=== PATIENT | female | born 1980 | race Caucasian/White ===

== ENCOUNTER 2020-10-28 07:54 | Outpatient (REF) | payer OTHER, SELFPAY ==
[2020-10-28 09:11] LABS: MANUAL DIFF FLAG NO
[2020-10-28 09:16] LABS: Basophils Percent Auto 0.6 % (0-2); Eosinophils Absolute Auto 0.2 X10*3/uL (0.0-0.4); Eosinophils Percent Auto 2.6 % (0-4); Hemoglobin 12.7 g/dl (12.0-16.0); Imm Gran Abs Auto 0.03 X10*3/uL (0.00-0.03); Imm Gran Pct Auto 0.5 % (0.0-0.4); Lymphocytes Absolute Auto 1.4 X10*3/uL (1.2-4.9); Lymphocytes Percent Auto 22.2 % (20-40); Mean Corpuscular HGB Conc 32.6 g/dl (31.0-35.0); Mean Corpuscular Hemoglobin 29.7 pg (27.0-33.0); Mean Corpuscular Volume 91.3 fL (80-98); Mean Platelet Volume 11.1 fL (9.4-12.3); Monocytes Absolute Auto 0.5 X10*3/uL (0.1-1.2); Monocytes Percent Auto 7.3 % (2-11); Neutrophils Absolute Auto 4.3 X10*3/uL (2.0-8.3); Neutrophils Percent Auto 66.8 % (45-73); Platelet Count 285 X10*3/uL (160-400); Red Blood Count 4.27 X10*6/uL (4.20-5.50); Red Cell Distribution Width 12.3 % (11.0-16.0); White Blood Count 6.4 X10*3/uL (4.8-10.8)
[2020-10-28 09:49] LABS: Alanine Aminotransferase 7 U/L (0-31); Albumin Level 4.3 g/dL (3.5-5.0); Alkaline Phosphatase 53 U/L (39-117); Anion Gap 12 (12-20); Aspartate Amino Transferase 14 U/L (5-31); Bilirubin Total 0.8 mg/dL (0.0-1.0); Blood Urea Nitrogen 16 mg/dL (9-16); Calcium 9.3 mg/dL (8.4-10.2); Carbon Dioxide 25 mmol/L (22-29); Chloride 107 mmol/L (96-108); Cholesterol 200 mg/dL; Estimated Glomerular Filt Rate > 60; Glucose Fasting 82 mg/dL (60-99); HDL Cholesterol 60 mg/dL; LDL Cholesterol Calculated 130 mg/dl; Sodium 140 mmol/L (135-145); Total Protein 6.8 g/dL (6.5-8.0); Triglycerides 51 mg/dL
[2020-10-28 10:01] LABS: Thyroid Stimulating Hormone 2.61 uIU/mL (0.32-4.0)
== END 2020-10-28 07:55 | disposition home or self-care (01) ==
LOC: HO.LAB 07:54
PROVIDERS: PCP Internal Medicine; Visit Provider Internal Medicine
DX: Z00.00 Encounter for general adult medical examination without abnormal findings (principal); E11.9 Type 2 diabetes mellitus without complications; E03.9 Hypothyroidism, unspecified
CPT/HCPCS: 36415; 80053; 80061; 84443; 85025

== ENCOUNTER 2022-05-17 07:53 | Outpatient (REF) | payer OTHER, SELFPAY ==
[2022-05-17 10:45] LABS: MANUAL DIFF FLAG NO
[2022-05-17 10:53] LABS: Basophils Absolute Auto 0.1 X10*3/uL (0.0-0.2); Basophils Percent Auto 1.2 % (0-2); Eosinophils Absolute Auto 0.2 X10*3/uL (0.0-0.4); Eosinophils Percent Auto 4.3 % (0-4); Hematocrit 38.9 % (37.0-47.0); Hemoglobin 12.7 g/dl (12.0-16.0); Imm Gran Abs Auto 0.02 X10*3/uL (0.00-0.03); Imm Gran Pct Auto 0.4 % (0.0-0.4); Lymphocytes Absolute Auto 1.7 X10*3/uL (1.2-4.9); Lymphocytes Percent Auto 34.1 % (20-40); Mean Corpuscular HGB Conc 32.6 g/dl (31.0-35.0); Mean Corpuscular Hemoglobin 28.7 pg (27.0-33.0); Mean Corpuscular Volume 87.8 fL (80.0-98.0); Mean Platelet Volume 11.8 fL (9.4-12.3); Monocytes Absolute Auto 0.6 X10*3/uL (0.1-1.2); Monocytes Percent Auto 11.8 % (2-11); Neutrophils Absolute Auto 2.4 x10*3/uL (2.0-8.3); Neutrophils Percent Auto 48.2 % (45-73); Platelet Count 270 X10*3/uL (160-400); Red Blood Count 4.43 X10*6/uL (4.20-5.50); Red Cell Distribution Width 11.9 % (11.0-16.0); White Blood Count 4.9 X10*3/uL (4.8-10.8)
[2022-05-17 12:01] LABS: Alanine Aminotransferase 9 U/L (0-31); Albumin Level 4.2 g/dL (3.5-5.0); Alkaline Phosphatase 59 U/L (39-117); Anion Gap 12 (12-20); Aspartate Amino Transferase 13 U/L (5-31); Bilirubin Total 0.6 mg/dL (0.0-1.0); Blood Urea Nitrogen 15 mg/dL (9-16); Calcium 8.7 mg/dL (8.4-10.2); Carbon Dioxide 24 mmol/L (22-29); Chloride 105 mmol/L (96-108); Cholesterol 198 mg/dL; Estimated Glomerular Filt Rate > 60; Glucose Fasting 79 mg/dL (60-99); HDL Cholesterol 55 mg/dL; LDL Cholesterol Calculated 129 mg/dl; Potassium 3.7 mmol/L (3.3-5.1); Sodium 137 mmol/L (135-145); Total Protein 6.8 g/dL (6.5-8.0); Triglycerides 72 mg/dL
== END 2022-05-17 07:54 | disposition home or self-care (01) ==
LOC: HO.10HDL 07:53
PROVIDERS: Visit Provider Internal Medicine
DX: Z13.0 Encounter for screening for diseases of the blood and blood-forming organs and certain disorders involving the immune mechanism (principal); I10 Essential (primary) hypertension; E03.9 Hypothyroidism, unspecified; E78.5 Hyperlipidemia, unspecified
CPT/HCPCS: 36415; 80053; 80061; 84443; 85025

== ENCOUNTER 2023-02-04 10:52 | Outpatient (AMB) | payer OTHER, SELFPAY ==
[2023-02-04 10:55] VITALS: BP 100/58; PULSE 59; O2SAT 100
--- NOTE | 2023-02-04 10:55 | A.OFFPC_ITS ---
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 per policy Accompanied by: Self / Same As Patient Allergies No Known Allergies Allergy (Verified 02/04/23 10:56) Medication List - Last Reconciled 02/04/23 by Shadi Thacker MD cetirizine (Zyrtec) 10 mg PO DAILY PRN multivitamin 1 tab PO DAILY Tobacco use date assessed: 02/02/22 Dental Screening Dental Screen Date: 02/04/23 Did you have a dental visit in the last 12 months?: Yes Did you have a dental problem in the last 6 months where you did not have access to dental care?: No Was dental information given to patient?: Patient has dentist HPI annual exam HPI Details healthy [facility] Surgical History History of section History of wisdom tooth extraction Family History Mother No problems noted. Father No problems noted. Social History Housing: House Alcohol intake: current Alcohol intake frequency: holidays/special occasions only Patient Tobacco Use Status: Never used Tobacco e-Cigarette/Vaping Use: Never Used Second Hand Smoke Exposure: No service: No Current occupational status: employed Current occupation: [employer] Cognitive needs: No Hearing needs: No Vision needs: No Questionnaire PHQ-9 Over the last 2 weeks, how often have you been bothered by any of the following problems? 1. Little interest or pleasure in doing things: not at all 2. Feeling down, depressed, or hopeless: not at all 3. Trouble falling or staying asleep, or sleeping too much: not at all 4. Feeling tired or having little energy: not at all 5. Poor appetite or overeating: not at all 6. Feeling bad about yourself - or that you are a failure or have let yourself or your family down: not at all 7. Trouble concentrating on things, such as reading the newspaper or watching television: not at all 8. Moving or speaking so slowly that other people could have noticed. Or the opposite - being so fidgety or restless that you have been moving around a lot more than usual: not at all 9. Thoughts that you would be better off or of hurting yourself in some way: not at all Total score: 0 Depression Screening Interpretation: Negative 18246 - PHQ-9 Billing: Yes Source: Developed by Drs. Sloan Lemus, Kailyn Allen, Cesar Hicks and colleagues, with an educational bebeto from [employer]. Thrive Questionnaire Date Thrive assessed: 02/04/23 I am a: Patient What is your living situation today?: I have a steady place to live Within the past 12 months, did the food you bought not last and you didn't have the money to get more?: Never true Within the past 12 months, did you worry whether your food would run out before you got money to buy more?: Never true Do you have trouble paying for medicines?: No Do you have trouble getting transportation to medical appointments?: No Do you have trouble paying your heating and electricity bill?: No Do you have trouble taking care of your child, family member or friend?: No Do you have trouble with day-to-day activities such as bathing, preparing meals, shopping, managing finances, etc.?: No Are you currently unemployed and looking for a job?: No Are you interested in more education?: No Please select the resources that you would like help with: None AUDIT C Alcohol Use Questionnaire (AUDIT-C) 1. How often do you have a drink containing alcohol?: Never Total Score: 0 Score Reviewed/Action Taken: Yes YESENIA-7 AMB Questionnaire YESENIA-7 Date YESENIA - 7 assessed: 02/04/23 Feeling nervous, anxious, or on edge: 0 = Not at all Not being able to stop or control worryin = Not at all Worrying too much about different things: 0 = Not at all Trouble relaxin = Not at all Being so restless that it is hard to sit still: 0 = Not at all Becoming easily annoyed or irritable: 0 = Not at all Feeling afraid as if something awful might happen: 0 = Not at all Total YESENAI-7 score (0-4 normal; 5-9 mild; 10-14 moderate; 15-21 severe): 0 Source: Developed by Drs. Sloan Lemus, Kailyn Allen, Cesar Hicks and colleagues, with an educational bebeto from [employer]. YESENIA-7 Assessment Billing YESENIA-7 Assessment Tool: YESENIA-7 Assessment 46355 Review of Systems Const Denies chills, Denies fatigue, Denies headache(s) and Denies weight loss Eyes Denies change in vision, Denies diplopia and Denies eye pain ENT Denies vertigo, Denies dizziness, Denies headache(s) and Denies nasal discharge Card Denies chest pain, Denies rapid heart rate and Denies dyspnea on exertion Resp Denies chest congestion, Denies cough, Denies pain with cough and Denies dyspnea on exertion GI Denies abdominal pain, Denies hematochezia and Denies change in bowel habits Musc Denies myalgias, Denies arthralgias and Denies joint swelling Skin/Breast Denies lesions and Denies unusual bruising Neuro Denies vertigo, Denies dizziness, Denies headache(s) and Denies focal weakness Endo Denies fatigue Physical exam (Primary Care) Vital Signs: Last Vital Signs Pulse 59 02/04/23 10:55 BP 100/58 L 02/04/23 10:55 Pulse Ox 100 02/04/23 10:55 Oxygen Delivery Method Room Air 02/04/23 10:55 BMI result Body Mass Index 20.0 Tobacco/Smoking Status: Tobacco use Status Tobacco use date assessed 02/02/22 02/04/23 10:57 Patient Tobacco Use Status Never used Tobacco 02/04/23 10:57 e-Cigarette/Vaping Use Never Used 02/04/23 10:57 PHQ-9: PHQ-9 Score PHQ-9: Total score 0 02/04/23 11:05 Depression Screening Interpretation: Negative Thrive Assessment: Date of Thrive Assessment Date Thrive assessed 02/04/23 02/04/23 10:57 Const General: cooperative, healthy appearing and no acute distress Orientation/consciousness: oriented to person, oriented to place and oriented to time HENMT Head: Yes normal to inspection, Yes normocephalic and Yes atraumatic Mouth: Normal oral and palatal mucosa present and tongue normal Throat: Yes posterior oropharynx normal and Yes uvula midline Eyes General: appearance normal, both eyes and all related structures Neck Neck: Yes normal visual inspection, Yes full ROM and Yes no lymphadenopathy Thyroid: Thyroid normal Carotids: normal carotid upstroke Chest Chest palpation & inspection: normal inspection of the chest Resp Effort & Inspection: normal respiratory effort and able to speak in complete sentences Auscultation: clear to auscultation bilaterally Cardio Jugular venous distension: no JVD Palpation: normal PMI Rate: regular rate Rhythm: regular rhythm Heart sounds: S1 normal heart sound present and S2 normal heart sound present GI Inspection: Yes normal to inspection Palpation (GI): Soft to palpation and No hepatosplenomegaly present Auscultation: normal bowel sounds General: Yes no CVA tenderness Back/Spine/Pelvis Back: no CVA tenderness Skin General skin exam: no rashes or lesions noted Neuro General: oriented to person, oriented to place and oriented to time Extrem General: Yes normal to inspection and Yes full ROM Assessment and Plan Assessment & Plan (1) Physical exam: Code(s): Z00.00 - Encounter for general adult medical examination without abnormal findings Plan: healthy; do labs Orders: Orders Lipid Panel Today E78.5 - Hyperlipidemia, unspecified Complete Blood Count Auto Diff Today D64.9 - Anemia, unspecified Comprehensive [place]. Panel Fast Today N28.9 - Disorder of kidney and ureter, unspecified Thyroid Stimulating Hormone Today E03.9 - Hypothyroidism, unspecified Coding Level of Care Code Est Pt Prev Care 40-64y(73996) Diagnoses Physical exam Z00.00 Additional Codes YESENIA-7 Assessment Billing - YESENIA-7 Assessment Tool: YESENIA-7 Assessment [id number] ([id number])
== END 2023-02-04 11:24 | disposition home or self-care (01) ==
PROVIDERS: PCP Internal Medicine; Visit Provider Internal Medicine
DX: Z00.00 Encounter for general adult medical examination without abnormal findings (principal)
CPT/HCPCS: 99396

== ENCOUNTER 2023-06-14 08:19 | Outpatient (REF) | payer OTHER, SELFPAY ==
[2023-06-14 11:19] LABS: MANUAL DIFF FLAG NO
[2023-06-14 12:01] LABS: Basophils Percent Auto 0.7 % (0-2); Eosinophils Absolute Auto 0.2 X10*3/uL (0.0-0.4); Eosinophils Percent Auto 2.7 % (0-4); Hematocrit 39.5 % (37.0-47.0); Hemoglobin 13.1 g/dl (12.0-16.0); Imm Gran Abs Auto 0.01 X10*3/uL (0.00-0.03); Imm Gran Pct Auto 0.2 % (0.0-0.4); Lymphocytes Absolute Auto 1.6 X10*3/uL (1.2-4.9); Mean Corpuscular HGB Conc 33.2 g/dl (31.0-35.0); Mean Corpuscular Hemoglobin 28.9 pg (27.0-33.0); Mean Corpuscular Volume 87.2 fL (80.0-98.0); Mean Platelet Volume 11.8 fL (9.4-12.3); Monocytes Absolute Auto 0.5 X10*3/uL (0.1-1.2); Monocytes Percent Auto 9.7 % (2-11); Neutrophils Absolute Auto 3.2 x10*3/uL (2.0-8.3); Neutrophils Percent Auto 57.7 % (45-73); Platelet Count 288 X10*3/uL (160-400); Red Blood Count 4.53 X10*6/uL (4.20-5.50); Red Cell Distribution Width 12.5 % (11.0-16.0); White Blood Count 5.6 X10*3/uL (4.8-10.8)
[2023-06-14 13:18] LABS: Alanine Aminotransferase 11 U/L (0-31); Albumin Level 4.3 g/dL (3.5-5.0); Alkaline Phosphatase 62 U/L (39-117); Anion Gap 12 (12-20); Aspartate Amino Transferase 14 U/L (5-31); Bilirubin Total 0.5 mg/dL (0.0-1.0); Blood Urea Nitrogen 13 mg/dL (9-16); Calcium 9.2 mg/dL (8.4-10.2); Carbon Dioxide 25 mmol/L (22-29); Chloride 106 mmol/L (96-108); Cholesterol 201 mg/dL (<200); Estimated Glomerular Filt Rate > 60; Glucose Fasting 79 mg/dL (60-99); HDL Cholesterol 61 mg/dL (>40); LDL Cholesterol Calculated 123 mg/dL (<100); Potassium 3.8 mmol/L (3.3-5.1); Sodium 139 mmol/L (135-145); Thyroid Stimulating Hormone 2.75 uIU/mL (0.32-4.0); Total Protein 7.5 g/dL (6.5-8.0); Triglycerides 87 mg/dL (<150)
== END 2023-06-14 08:20 | disposition home or self-care (01) ==
LOC: HO.WFDLDS 08:19
PROVIDERS: Visit Provider Internal Medicine
DX: E03.9 Hypothyroidism, unspecified (principal); D64.9 Anemia, unspecified; N28.9 Disorder of kidney and ureter, unspecified; E78.5 Hyperlipidemia, unspecified
CPT/HCPCS: 36415; 80053; 80061; 84443; 85025

== ENCOUNTER 2024-02-06 09:49 | Outpatient (AMB) | payer OTHER, SELFPAY ==
[2024-02-06 10:01] VITALS: BP 114/70; PULSE 66; O2SAT 98; BMI 20.4
--- NOTE | 2024-02-06 10:01 | MHC.PC.OV ---
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 Accompanied by: Self / Same As Patient Allergies No Known Allergies Allergy (Verified 02/06/24 10:07) Medication List - Last Reconciled 02/06/24 by Shadi Thacker MD cetirizine (Zyrtec) 10 mg PO DAILY PRN multivitamin 1 tab PO DAILY Tobacco use date assessed: 02/06/24 Dental Screening Dental Screen Date: 02/06/24 Did you have a dental visit in the last 12 months?: Yes Did you have a dental problem in the last 6 months where you did not have access to dental care?: No Was dental information given to patient?: Patient has dentist HPI pe HPI Details healthy [facility] Surgical History History of section History of wisdom tooth extraction Family History Mother No problems noted. Father No problems noted. Social History Housing: House Alcohol intake: current Alcohol intake frequency: holidays/special occasions only Patient Tobacco Use Status: Never used Tobacco Tobacco use type: Cigarette e-Cigarette/Vaping Use: Never Used Second Hand Smoke Exposure: No service: No Current occupational status: employed Current occupation: [employer] Cognitive needs: No Hearing needs: No Vision needs: No Questionnaire PHQ-9 Over the last 2 weeks, how often have you been bothered by any of the following problems? 1. Little interest or pleasure in doing things: not at all 2. Feeling down, depressed, or hopeless: not at all 3. Trouble falling or staying asleep, or sleeping too much: not at all 4. Feeling tired or having little energy: not at all 5. Poor appetite or overeating: not at all 6. Feeling bad about yourself - or that you are a failure or have let yourself or your family down: not at all 7. Trouble concentrating on things, such as reading the newspaper or watching television: not at all 8. Moving or speaking so slowly that other people could have noticed. Or the opposite - being so fidgety or restless that you have been moving around a lot more than usual: not at all 9. Thoughts that you would be better off or of hurting yourself in some way: not at all Total score: 0 Depression Screening Interpretation: Negative Depression Screening Done: Yes 75026 - PHQ-9 Billing: Yes Source: Developed by Drs. Sloan Lemus, Kailyn Allen, Cesar Hicks and colleagues, with an educational bebeto from [employer]. Thrive Questionnaire Date Thrive assessed: 01/31/24 I am a: Patient What is your living situation today?: I have a steady place to live Within the past 12 months, did the food you bought not last and you didn't have the money to get more?: Never true Within the past 12 months, did you worry whether your food would run out before you got money to buy more?: Never true Do you have trouble paying for medicines?: No Do you have trouble getting transportation to medical appointments?: No Do you have trouble paying your heating and electricity bill?: No Do you have trouble taking care of your child, family member or friend?: No Do you have trouble with day-to-day activities such as bathing, preparing meals, shopping, managing finances, etc.?: No Are you currently unemployed and looking for a job?: No Are you interested in more education?: No Please select the resources that you would like help with: None Currently or been in a relationship where the following occur: No concerns reported THRIVE Score: 0 AUDIT C Alcohol Use Questionnaire (AUDIT-C) 2. How many drinks containing alcohol do you have on a typical day when you are drinking?: 1 or 2 3. How often do you have six or more drinks on one occasion?: Never Total Score: 0 YESENIA-7 AMB Questionnaire YESENIA-7 Date YESENIA - 7 assessed: 02/06/24 Feeling nervous, anxious, or on edge: 0 = Not at all Not being able to stop or control worryin = Not at all Worrying too much about different things: 0 = Not at all Trouble relaxin = Not at all Being so restless that it is hard to sit still: 0 = Not at all Becoming easily annoyed or irritable: 0 = Not at all Feeling afraid as if something awful might happen: 0 = Not at all Total YESENIA-7 score (0-4 normal; 5-9 mild; 10-14 moderate; 15-21 severe): 0 Source: Developed by Drs. Sloan Lemus, Kailyn Allen, Cesar Hicks and colleagues, with an educational bebeto from [employer]. Review of Systems Const Denies chills, Denies fatigue, Denies headache(s) and Denies weight loss Eyes Denies change in vision, Denies diplopia and Denies eye pain ENT Denies vertigo, Denies dizziness, Denies headache(s) and Denies nasal discharge Card Denies chest pain, Denies rapid heart rate and Denies dyspnea on exertion Resp Denies chest congestion, Denies cough, Denies pain with cough and Denies dyspnea on exertion GI Denies abdominal pain, Denies hematochezia and Denies change in bowel habits Musc Denies myalgias, Denies arthralgias and Denies joint swelling Skin/Breast Denies lesions and Denies unusual bruising Neuro Denies vertigo, Denies dizziness, Denies headache(s) and Denies focal weakness Endo Denies fatigue Physical exam (Primary Care) Vital Signs: Last Vital Signs Pulse 66 02/06/24 10:01 BP 114/70 02/06/24 10:01 Pulse Ox 98 02/06/24 10:01 Oxygen Delivery Method Room Air 02/06/24 10:01 BMI result Body Mass Index 20.4 Tobacco/Smoking Status: Tobacco use Status Tobacco use date assessed 02/06/24 02/06/24 10:07 Patient Tobacco Use Status Never used Tobacco 02/06/24 10:07 Tobacco use type Cigarette 02/06/24 10:07 e-Cigarette/Vaping Use Never Used 02/06/24 10:07 PHQ-9: PHQ-9 Score PHQ-9: Total score 0 02/06/24 10:07 Depression Screening Interpretation: Negative Thrive Assessment: Date of Thrive Assessment Date Thrive assessed 01/31/24 02/06/24 10:07 Currently or been in a relationship where the following occur: No concerns reported Const General: cooperative, healthy appearing and no acute distress Orientation/consciousness: oriented to person, oriented to place and oriented to time [facility] Head: Yes normal to inspection, Yes normocephalic and Yes atraumatic Mouth: Normal oral and palatal mucosa present and tongue normal Throat: Yes posterior oropharynx normal and Yes uvula midline Eyes General: appearance normal, both eyes and all related structures Neck Neck: Yes normal visual inspection, Yes full ROM and Yes no lymphadenopathy Thyroid: Thyroid normal Carotids: normal carotid upstroke Chest Chest palpation & inspection: normal inspection of the chest Resp Effort & Inspection: normal respiratory effort and able to speak in complete sentences Auscultation: clear to auscultation bilaterally Cardio Jugular venous distension: no JVD Palpation: normal PMI Rate: regular rate Rhythm: regular rhythm Heart sounds: S1 normal heart sound present and S2 normal heart sound present GI Inspection: Yes normal to inspection Palpation (GI): Soft to palpation and No hepatosplenomegaly present Auscultation: normal bowel sounds General: Yes no CVA tenderness Back/Spine/Pelvis Back: no CVA tenderness Skin General skin exam: no rashes or lesions noted Neuro General: oriented to person, oriented to place and oriented to time Extrem General: Yes normal to inspection and Yes full ROM Assessment and Plan Assessment & Plan (1) Physical exam: Code(s): Z. - Encounter for general adult medical examination without abnormal findings Plan: stable; do labs Orders: Orders Lipid Panel Today Z00.00 - Encounter for general adult medical examination without abnormal findings Comprehensive [place]. Panel Fast Today Z00.00 - Encounter for general adult medical examination without abnormal findings Complete Blood Count Auto Diff Today Z00.00 - Encounter for general adult medical examination without abnormal findings Thyroid Stimulating Hormone Today Z00.00 - Encounter for general adult medical examination without abnormal findings Coding Level of Care Code Est Pt Prev Care 40-64y(72068) Diagnoses Physical exam Z00.00
== END 2024-02-06 10:30 | disposition home or self-care (01) ==
PROVIDERS: PCP Internal Medicine; Visit Provider Internal Medicine
DX: Z00.00 Encounter for general adult medical examination without abnormal findings (principal)
CPT/HCPCS: 99396

== ENCOUNTER 2025-03-09 14:49 | Outpatient (AMB) | payer OTHER, SELFPAY ==
--- NOTE | 2025-03-09 14:51 | MHC.PC.OV ---
Vital Signs 03/09/25 14:52 Height 5 ft 4 in Weight 121 lb 6 oz BMI 20.8 BP 108/72 Blood Pressure Location Lt brachial Position Sitting Pulse 77 Pulse Source Pulse Oximeter Temp 97.5 F Temp Source Temporal Artery Scan Pulse Oximetry (%) 98 Oxygen Delivery Method Room Air Intake Visit Reasons: Chest conguestion and Sinus infection Allergies No Known Allergies Allergy (Verified 03/09/25 14:55) Tobacco use date assessed: 03/09/25 Dental Screening Dental Screen Date: 03/09/25 Did you have a dental visit in the last 12 months?: Yes Did you have a dental problem in the last 6 months where you did not have access to dental care?: No Was dental information given to patient?: Patient has dentist HPI HPI Comments History of Present Illness Details The patient is a 44-year-old female presenting with a persistent cough and fatigue. She began feeling unwell on Saturday, with symptoms worsening by Saturday, characterized by a non-productive cough that became persistent. By Saturday, the cough remained non-productive, and she experienced no fever or other significant symptoms. On Saturday and Saturday, the patient reported feeling tired, with the cough becoming slightly productive, particularly in the mornings. She denied sneezing and significant nasal discharge but noted mild congestion and a sore throat upon waking, which improved throughout the day. The patient attempted self-care with Mucinex, which did not significantly alter her symptoms. She maintained hydration and rest, with a maximum recorded temperature of 99?F, indicating no significant fever. Her children recently experienced colds, with her son diagnosed with an ear infection treated with amoxicillin, suggesting a possible viral exposure within the household. [facility] Surgical History History of section History of wisdom tooth extraction Family History Mother No problems noted. Father No problems noted. Social History Housing: House Alcohol intake: current Alcohol intake frequency: holidays/special occasions only Patient Tobacco Use Status: Never used Tobacco Tobacco use type: Cigarette e-Cigarette/Vaping Use: Never Used Second Hand Smoke Exposure: No service: No Current occupational status: employed Current occupation: [employer] Cognitive needs: No Hearing needs: No Vision needs: No Questionnaire PHQ-9 Over the last 2 weeks, how often have you been bothered by any of the following problems? 1. Little interest or pleasure in doing things: not at all 2. Feeling down, depressed, or hopeless: not at all 3. Trouble falling or staying asleep, or sleeping too much: not at all 4. Feeling tired or having little energy: not at all 5. Poor appetite or overeating: not at all 6. Feeling bad about yourself - or that you are a failure or have let yourself or your family down: not at all 7. Trouble concentrating on things, such as reading the newspaper or watching television: not at all 8. Moving or speaking so slowly that other people could have noticed. Or the opposite - being so fidgety or restless that you have been moving around a lot more than usual: not at all 9. Thoughts that you would be better off or of hurting yourself in some way: not at all Total score: 0 Depression Screening Interpretation: Negative Depression Screening Done: Yes 82555 - PHQ-9 Billing: Yes Source: Developed by Drs. Sloan Lemus, Kailyn Allen, Cesar Hicks and colleagues, with an educational bebeto from [employer]. Thrive Questionnaire Date Thrive assessed: 03/09/25 I am a: Patient What is your living situation today?: I have a steady place to live Within the past 12 months, did the food you bought not last and you didn't have the money to get more?: Never true Within the past 12 months, did you worry whether your food would run out before you got money to buy more?: Never true Do you have trouble paying for medicines?: No Do you have trouble getting transportation to medical appointments?: No Do you have trouble paying your heating and electricity bill?: No Do you have trouble taking care of your child, family member or friend?: No Do you have trouble with day-to-day activities such as bathing, preparing meals, shopping, managing finances, etc.?: No Are you currently unemployed and looking for a job?: No Are you interested in more education?: No Please select the resources that you would like help with: None Currently or been in a relationship where the following occur: No concerns reported THRIVE Score: 0 AUDIT C Alcohol Use Questionnaire (AUDIT-C) 1. How often do you have a drink containing alcohol?: Monthly or less 2. How many drinks containing alcohol do you have on a typical day when you are drinking?: 1 or 2 3. How often do you have six or more drinks on one occasion?: Never Total Score: 1 YESENIA-7 AMB Questionnaire YESENIA-7 Date YESENIA - 7 assessed: 03/09/25 Feeling nervous, anxious, or on edge: 0 = Not at all Not being able to stop or control worryin = Not at all Worrying too much about different things: 0 = Not at all Trouble relaxin = Not at all Being so restless that it is hard to sit still: 0 = Not at all Becoming easily annoyed or irritable: 0 = Not at all Feeling afraid as if something awful might happen: 0 = Not at all Total YESENIA-7 score (0-4 normal; 5-9 mild; 10-14 moderate; 15-21 severe): 0 Source: Developed by Drs. Sloan Lemus, Kailyn Allen, Cesar Hicks and colleagues, with an educational bebeto from [employer]. YESENIA-7 Assessment Billing YESENIA-7 Assessment Tool: YESENIA-7 Assessment 58580 Review of Systems Const Details: Positives besides what was mentioned in HPI are in BOLD Constitutional: No Weight Change, No Fever, No Chills, No Night Sweats, No Fatigue, No Malaise ENT/Mouth: No Hearing Changes, No Ear Pain, No Nasal Congestion, No Sinus Pain, No Hoarseness, No sore throat, No Rhinorrhea, No Swallowing Difficulty Eyes: No Eye Pain, No Swelling, No Redness, No Foreign Body, No Discharge, No Vision Changes Cardiovascular: No Chest Pain, No SOB, No PND, No Dyspnea on Exertion, No Orthopnea, No Claudication, No Edema, No Palpitations Respiratory: No Cough, No Sputum, No Wheezing, No Smoke Exposure, No Dyspnea Gastrointestinal: No Nausea, No Vomiting, No Diarrhea, No Constipation, No Pain, No Heartburn, No Anorexia, No Dysphagia, No Hematochezia, No Melena, No Flatulence, No Jaundice Genitourinary: No Dysmenorrhea, No DUB, No Dyspareunia, No Dysuria, No Urinary Frequency, No Hematuria, No Urinary Incontinence, No Urgency, No Flank Pain, No Urinary Flow Changes, No Hesitancy Musculoskeletal: No Arthralgias, No Myalgias, No Joint Swelling, No Joint Stiffness, No Back Pain, No Neck Pain, No Injury History Skin: No Skin Lesions, No Pruritis, No Hair Changes, No Breast/Skin Changes, No Nipple Discharge Neuro: No Weakness, No Numbness, No Paresthesias, No Loss of Consciousness, No Syncope, No Dizziness, No Headache, No Coordination Changes, No Recent Falls Psych: No Anxiety/Panic, No Depression, No Insomnia, No Personality Changes, No Delusions, No Rumination, No SI/HI/AH/VH, No Social Issues, No Memory Changes, No Violence/Abuse Hx., No Eating Concerns Heme/Lymph: No Bruising, No Bleeding, No Transfusions History, No Lymphadenopathy Endocrine: No Polyuria, No Polydipsia, No Temperature Intolerance Physical exam (Primary Care) Vital Signs: Last Vital Signs Temp 97.5 F 03/09/25 14:52 Pulse 77 03/09/25 14:52 BP 108/72 03/09/25 14:52 Pulse Ox 98 03/09/25 14:52 Oxygen Delivery Method Room Air 03/09/25 14:52 BMI result Body Mass Index 20.8 Tobacco/Smoking Status: Tobacco use Status Tobacco use date assessed 03/09/25 03/09/25 14:56 Patient Tobacco Use Status Never used Tobacco 03/09/25 14:56 Tobacco use type Cigarette 03/09/25 14:56 e-Cigarette/Vaping Use Never Used 03/09/25 14:56 PHQ-9: PHQ-9 Score PHQ-9: Total score 0 03/09/25 14:56 Depression Screening Interpretation: Negative Thrive Assessment: Date of Thrive Assessment Date Thrive assessed 03/09/25 03/09/25 14:56 Currently or been in a relationship where the following occur: No concerns reported Const Other: Pertinent findings are in BOLD GENERAL APPEARANCE NAD, activity normal for age, well developed/ well nourished, no cyanosis, pallor, or diaphoresis. EYES lids/conjunctiva normal. EARS/NOSE/THROAT Mucous membranes moist, nares normal, lips/teeth normal uvula midline without oral pharyngeal erythema, exudate or swelling TMs normal bilaterally. No lymphangitis/lymphedema. HEAD/NECK normocephalic atraumatic, no facial trauma, neck is supple. RESPIRATORY respiratory effort normal, speaks in full sentences, no tripod position, no accessory muscle use. Lungs clear to auscultation without rhonchi, wheezes, rales CARDIAC Regular rate and rhythm, no edema. ABDOMINAL Soft, ND/NT. No evidence of fluid wave. No pulsatile masses on exam, rebound tenderness, Soto sign or pain over Mcburney's point. MUSCLES/EXTREMITIES No abnormal range of motion, no swelling. SKIN Warm, pink and dry. No rashes, dermatoses, petechiae or lesions. NEUROLOGICAL Speech is clear and appropriate. Normal level of consciousness. Gait and coordination are normal. 5/5 strength in all extremities. PSYCH Normal mood and affect. Judgement/competence is appropriate Coding Level of Care Code Est Pt Level 3 (97878) Diagnoses Chest congestion R09.89 Additional Codes YESENIA-7 Assessment Billing - YESENIA-7 Assessment Tool: YESENIA-7 Assessment 20992 ([id number]) PHQ-9 - 90013 - PHQ-9 Billing: Yes ([id number]) Time Spent (min) 20 Assessment & Plan Assessment & Plan (1) Chest congestion: Code(s): R09.89 - Other specified symptoms and signs involving the circulatory and respiratory systems Category: Medical Plan: - Prescribed azithromycin for six days, with a loading dose on the first day - Continue Mucinex and Zyrtec for symptom management - Advised to maintain hydration and rest - Discussed the likelihood of a viral etiology, with antibiotics as a precautionary measure - Ear flush recommended but deferred. Plan I discussed with the patient the likely viral nature of her symptoms and the use of azithromycin as a precautionary measure. We reviewed the importance of continuing Mucinex and Zyrtec for symptom relief and maintaining hydration. I also explained the potential need for an ear flush in the future, which was deferred by the patient. Medications: New azithromycin start on day 2 of therapy 250 mg PO DAILY 6 tabs 0RF 6 days
[2025-03-09 14:52] VITALS: BP 108/72; PULSE 77; TEMP 36.4; O2SAT 98; BMI 20.8
== END 2025-03-09 15:06 | disposition home or self-care (01) ==
LOC: HO.HMCH 14:50
PROVIDERS: PCP Internal Medicine; Visit Provider Internal Medicine
DX: R09.89 Other specified symptoms and signs involving the circulatory and respiratory systems (principal)

== ENCOUNTER → 2025-03-09 14:49 | Outpatient (BNVA) | payer OTHER, SELFPAY | PROVIDERS: PCP Internal Medicine; Visit Provider Internal Medicine | DX: R05.3 Chronic cough (principal); R53.83 Other fatigue; R09.89 Other specified symptoms and signs involving the circulatory and respiratory systems | CPT/HCPCS: 96127 ==

== ENCOUNTER 2025-03-25 09:55 | Outpatient (AMB) | payer OTHER, SELFPAY ==
--- NOTE | 2025-03-25 10:03 | MHC.PC.OV ---
Vital Signs 03/25/25 10:04 Height 5 ft 4 in Weight 123 lb BMI 21.1 BP 90/60 Blood Pressure Location Lt brachial Position Sitting Pulse 68 Pulse Source Pulse Oximeter Temp 97.3 F Temp Source Temporal Artery Scan Pulse Oximetry (%) 99 Oxygen Delivery Method Room Air Intake Visit Reasons: sore throat Intake Note: Patient is here to follow up on Sore throat, no fevers or chills, white spot at back of throat started 03/20/25. 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 Father No problems noted. Social History Housing: House Alcohol intake: current Alcohol intake frequency: holidays/special occasions only Patient Tobacco Use Status: Never used Tobacco Tobacco use type: Cigarette e-Cigarette/Vaping Use: Never Used Second Hand Smoke Exposure: No service: No Current occupational status: employed Current occupation: [employer] Cognitive needs: No Hearing needs: No Vision needs: No Questionnaire PHQ-9 Over the last 2 weeks, how often have you been bothered by any of the following problems? 1. Little interest or pleasure in doing things: not at all 2. Feeling down, depressed, or hopeless: not at all 3. Trouble falling or staying asleep, or sleeping too much: not at all 4. Feeling tired or having little energy: not at all 5. Poor appetite or overeating: not at all 6. Feeling bad about yourself - or that you are a failure or have let yourself or your family down: not at all 7. Trouble concentrating on things, such as reading the newspaper or watching television: not at all 8. Moving or speaking so slowly that other people could have noticed. Or the opposite - being so fidgety or restless that you have been moving around a lot more than usual: not at all 9. Thoughts that you would be better off or of hurting yourself in some way: not at all Total score: 0 Depression Screening Interpretation: Negative Depression Screening Done: Yes Source: Developed by Drs. Sloan Lemus, Kailyn Allen, Cesar Hicks and colleagues, with an educational bebeto from [employer]. Thrive Questionnaire Date Thrive assessed: 03/25/25 I am a: Patient What is your living situation today?: I have a steady place to live Within the past 12 months, did the food you bought not last and you didn't have the money to get more?: Never true Within the past 12 months, did you worry whether your food would run out before you got money to buy more?: Never true Do you have trouble paying for medicines?: No Do you have trouble getting transportation to medical appointments?: No Do you have trouble paying your heating and electricity bill?: No Do you have trouble taking care of your child, family member or friend?: No Do you have trouble with day-to-day activities such as bathing, preparing meals, shopping, managing finances, etc.?: No Are you currently unemployed and looking for a job?: No Are you interested in more education?: No Please select the resources that you would like help with: None Currently or been in a relationship where the following occur: No concerns reported THRIVE Score: 0 AUDIT C Alcohol Use Questionnaire (AUDIT-C) 1. How often do you have a drink containing alcohol?: Monthly or less 2. How many drinks containing alcohol do you have on a typical day when you are drinking?: 1 or 2 3. How often do you have six or more drinks on one occasion?: Never Total Score: 1 YESENIA-7 AMB Questionnaire YESENIA-7 Date YESENIA - 7 assessed: 03/09/25 Feeling nervous, anxious, or on edge: 0 = Not at all Not being able to stop or control worryin = Not at all Worrying too much about different things: 0 = Not at all Trouble relaxin = Not at all Being so restless that it is hard to sit still: 0 = Not at all Becoming easily annoyed or irritable: 0 = Not at all Feeling afraid as if something awful might happen: 0 = Not at all Total YESENIA-7 score (0-4 normal; 5-9 mild; 10-14 moderate; 15-21 severe): 0 Source: Developed by Drs. Sloan Lemus, Kailyn Allen, Cesar Hicks and colleagues, with an educational bebeto from [employer]. Physical exam (Primary Care) Vital Signs: Last Vital Signs Temp 97.3 F 03/25/25 10:04 Pulse 68 03/25/25 10:04 BP 90/60 03/25/25 10:04 Pulse Ox 99 03/25/25 10:04 Oxygen Delivery Method Room Air 03/25/25 10:04 BMI result Body Mass Index 21.1 Tobacco/Smoking Status: Tobacco use Status Tobacco use date assessed 03/25/25 03/25/25 10:05 Patient Tobacco Use Status Never used Tobacco 03/25/25 10:05 Tobacco use type Cigarette 03/25/25 10:05 e-Cigarette/Vaping Use Never Used 03/25/25 10:05 PHQ-9: PHQ-9 Score PHQ-9: Total score 0 03/25/25 10:12 Depression Screening Interpretation: Negative Thrive Assessment: Date of Thrive Assessment Date Thrive assessed 03/25/25 03/25/25 10:05 Currently or been in a relationship where the following occur: No concerns reported Results AMB Rapid Strep AMB Rapid Strep Negative Last Edit by SENAIT Weiner on 03/25/25 10:22 Results Reviewed Results Reviewed: Laboratory Last Values Strep Scn Rapid Clinic Negative 03/25/25 10:07 Coding Level of Care Code Est Pt Level 3 (19339) Complex EM visit Add On G2211 Diagnoses Recurrent upper respiratory tract infection J06.9 Assessment & Plan Assessment & Plan (1) Recurrent upper respiratory tract infection: Code(s): J06.9 - Acute upper respiratory infection, unspecified Plan: History of Present Illness - The patient is a 44-year-old female presenting with a sore throat. - The sore throat began on Saturday night and has progressively worsened. - The patient observed white spots in the back of her throat, raising concerns about streptococcal infection. - The patient reports no fever or other systemic symptoms. - The patient is currently taking Zyrtec for allergies and denies any other medications or medical problems. 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 - The patient is due for a routine checkup and mammogram, previously scheduled with Dr. Thacker. 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 - Family status: Has two children, a 14-year-old daughter and a 10-year-old son. - Substance use: Denies smoking. Review of Systems - ENT: Reports sore throat with white spots, denies fever. - Respiratory: Denies congestion or cough. Physical Exam General: Cooperative and healthy appearing Nutritional Appearance: Well nourished Orientation/consciousness: Patient oriented x3 Limitations: No limitations Head: Normal to inspection General: Appearance normal, both eyes and all related structures Neck: Normal visual inspection Chest: Normal palpation of entire chest wall Respiratory: Normal respiratory effort Neurology: Patient oriented x3 Results Plan - Prescribe Zithromax for suspected bacterial pharyngitis. - Recommend saltwater gargling to alleviate throat discomfort. Discussion Notes I discussed with the patient the likely diagnosis of bacterial pharyngitis and the treatment plan, including the prescription of Zithromax and the use of saltwater gargling. We also talked about the importance of completing the antibiotic course and monitoring symptoms. The patient was advised to follow up if symptoms persist or worsen. Patient Instructions - Take Zithromax as prescribed. - Gargle with saltwater to help soothe the throat. - Follow up if symptoms do not improve or worsen. Orders: Orders AMB Rapid Strep Screen Today Z13.9 - Encounter for screening, unspecified Medications: New azithromycin take 500 mg today (day 1), then 250 mg for 4 days (days 2-5) PO 6 tabs 0RF
[2025-03-25 10:04] VITALS: BP 90/60; PULSE 68; TEMP 36.3; O2SAT 99; BMI 21.1
--- OUTSIDE RECORDS SUMMARY | 2025-03-25 11:45 | XMS_ITS | Clinical Summary ---
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 Name Role Phone Atiya Lopez RN Unavailable Unavailable Social History Tobacco Use Types Packs/Day Years Used Date Smoking Tobacco: Never Assessed Comments Unknown Sex and Gender Information Value Date Recorded Sex Assigned at Not on file Legal Sex Female 1:01 PM [facility] Gender Identity Not on file Sexual Orientation Not on file Plan of Treatment Upcoming Encounters Date Type Department Care Team ([facility] Contact Info) Description 04/12/2025 11:00 AM EST Health Coaching Visit [facility] [employer] [address] [address] Atiya Lopez, AG[facility] Health Maintenance Due Date Last Done Comments Hepatitis C Screening 1981 MMR Vaccines (1 of 1 - Standard series) 1982 PHQ-9 Depression Screen 1993 Varicella Vaccines (1 of 2 - 13+ 2-dose series) 1993 Annual Preventive Exam 1999 YESENIA-7 Anxiety Screen 1999 DTaP,Tdap,and Td Vaccines (1 - Tdap) 2000 Hepatitis B Vaccines (1 of 3 - 19+ 3-dose series) 04/27 Cervical Cancer Screening (Pap/HPV) 2002 Mammogram 2021 COVID-19 Vaccine ( - season) 2025 Influenza Vaccine (#1) 2025 RSV Vaccine (SCDM) (1 - 1-dose 75+ series) 2056 Care Teams Slicing Machine Operator Relationship Specialty Start Date End Date Atiya Lopez, [facility] [employer] Registered Nurse 02/18/25
== END 2025-03-25 10:37 | disposition home or self-care (01) ==
LOC: HO.HMCH 09:55
PROVIDERS: PCP Internal Medicine; Visit Provider Internal Medicine
DX: J06.9 Acute upper respiratory infection, unspecified (principal); Z13.9 Encounter for screening, unspecified

== ENCOUNTER → 2025-03-25 09:55 | Outpatient (BNVA) | payer OTHER, SELFPAY | PROVIDERS: PCP Internal Medicine; Visit Provider Internal Medicine | DX: J06.9 Acute upper respiratory infection, unspecified (principal) | CPT/HCPCS: 87880; 96127 ==

== ENCOUNTER 2025-05-05 14:42 | Outpatient (AMB) | payer OTHER, SELFPAY ==
[2025-05-05 14:52] VITALS: BP 120/70; PULSE 85; O2SAT 98; BMI 21.0
--- NOTE | 2025-05-05 14:52 | A.OFFPC_ITS ---
Vital Signs 05/05/25 14:52 Height 5 ft 4 in Weight 122 lb 8 oz BMI 21.0 BP 120/70 Blood Pressure Location Lt brachial Position Sitting Pulse 85 Pulse Source Pulse Oximeter Pulse Oximetry (%) 98 Oxygen Delivery Method Room Air Intake Visit Reasons: SABINE Thacker/Annual Exam Puffer Tender Required: No Accompanied by: Self / Same As Patient Allergies No Known Allergies Allergy (Verified 05/05/25 15:23) Medication List - Last Reconciled 05/05/25 by Lele Meyer MD cetirizine (Zyrtec) 10 mg PO DAILY PRN multivitamin 1 tab PO DAILY Tobacco use date assessed: 05/05/25 Dental Screening Dental Screen Date: 05/05/25 Did you have a dental visit in the last 12 months?: Yes Did you have a dental problem in the last 6 months where you did not have access to dental care?: No Was dental information given to patient?: Patient has dentist HPI SABINE Thacker/Annual Exam HPI Details Patient is a 44-year-old female presenting for a routine physical and lab work - she is transferring over from Dr. Thacker, who retired from the practice earlier this year Patient states that she feels well She denies any headaches or dizziness Denies any chest pains, no SOB No nausea/vomiting, no abdominal pain No change in bowel habits noted She denies any acute urinary symptoms She takes a multivitamin and Zyrtec as needed. 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 She was informed that a screening colonoscopy is recommended at age 46. She has no history of elevated blood sugar and denies a family history of diabetes. She reports needing reading glasses this year, noting eye fatigue from computer use. [facility] Medical History (Updated 05/07/25 @ 04:17 by Lele Meyer MD) Allergic rhinitis Surgical History History of section History of wisdom tooth extraction Family History Mother No problems noted. Father No problems noted. Social History Housing: House Alcohol intake: current Alcohol intake frequency: holidays/special occasions only Patient Tobacco Use Status: Never used Tobacco Tobacco use type: Cigarette e-Cigarette/Vaping Use: Never Used Second Hand Smoke Exposure: No service: No Current occupational status: employed Current occupation: [employer] Cognitive needs: No Hearing needs: No Vision needs: No Questionnaire PHQ-9 Over the last 2 weeks, how often have you been bothered by any of the following problems? 1. Little interest or pleasure in doing things: not at all 2. Feeling down, depressed, or hopeless: not at all 3. Trouble falling or staying asleep, or sleeping too much: not at all 4. Feeling tired or having little energy: not at all 5. Poor appetite or overeating: not at all 6. Feeling bad about yourself - or that you are a failure or have let yourself or your family down: not at all 7. Trouble concentrating on things, such as reading the newspaper or watching television: not at all 8. Moving or speaking so slowly that other people could have noticed. Or the opposite - being so fidgety or restless that you have been moving around a lot more than usual: not at all 9. Thoughts that you would be better off or of hurting yourself in some way: not at all Total score: 0 Depression Screening Interpretation: Negative Depression Screening Done: Yes 52128 - PHQ-9 Billing: Yes Source: Developed by Drs. Sloan Lemus, Kailyn Allen, Cesar Hicks and colleagues, with an educational bebeto from [employer]. Thrive Questionnaire Date Thrive assessed: 05/05/25 I am a: Patient What is your living situation today?: I have a steady place to live Within the past 12 months, did the food you bought not last and you didn't have the money to get more?: Never true Within the past 12 months, did you worry whether your food would run out before you got money to buy more?: Never true Do you have trouble paying for medicines?: No Do you have trouble getting transportation to medical appointments?: No Do you have trouble paying your heating and electricity bill?: No Do you have trouble taking care of your child, family member or friend?: No Do you have trouble with day-to-day activities such as bathing, preparing meals, shopping, managing finances, etc.?: No Are you currently unemployed and looking for a job?: No Are you interested in more education?: No Please select the resources that you would like help with: None Currently or been in a relationship where the following occur: No concerns reported THRIVE Score: 0 AUDIT C Alcohol Use Questionnaire (AUDIT-C) 1. How often do you have a drink containing alcohol?: Monthly or less 2. How many drinks containing alcohol do you have on a typical day when you are drinking?: 1 or 2 3. How often do you have six or more drinks on one occasion?: Never Total Score: 1 Score Reviewed/Action Taken: Yes YESENIA-7 AMB Questionnaire YESENIA-7 Date YESENIA - 7 assessed: 05/05/25 Feeling nervous, anxious, or on edge: 0 = Not at all Not being able to stop or control worryin = Not at all Worrying too much about different things: 0 = Not at all Trouble relaxin = Not at all Being so restless that it is hard to sit still: 0 = Not at all Becoming easily annoyed or irritable: 0 = Not at all Feeling afraid as if something awful might happen: 0 = Not at all Total YESENIA-7 score (0-4 normal; 5-9 mild; 10-14 moderate; 15-21 severe): 0 Source: Developed by Drs. Sloan Lemus, Kailyn Allen, Cesar Hicks and colleagues, with an educational bebeto from [employer]. Review of Systems Const Denies chills, Denies fatigue, Denies fever(s), Denies headache(s) and Denies malaise Eyes Denies blurry vision, Denies change in vision, Denies irritation and Denies itchy eyes ENT Denies dysphagia, Denies dizziness, Denies otalgia, Denies headache(s), Denies nasal congestion, Denies neck pain, Denies odynophagia, Denies sinus pain and Denies sore throat Card Denies chest pain, Denies rapid heart rate, Denies irregular heart rhythm, Denies palpitations and Denies dyspnea Resp Denies chest congestion, Denies cough, Denies dyspnea and Denies wheezing GI Denies abdominal pain, Denies bloating, Denies constipation, Denies dysphagia, Denies heartburn, Denies diarrhea, Denies nausea, Denies odynophagia and Denies vomiting Denies hematuria, Denies urinary frequency, Denies dysuria, Denies urinary incontinence and Denies urinary urgency Musc Denies back pain, Denies arthralgias, Denies joint swelling, Denies muscle weakness and Denies neck pain Skin/Breast Denies breast pain, Denies breast mass, Denies change in pigmentation, Denies lesions, Denies rash and Denies unusual bruising Neuro Denies dizziness, Denies headache(s) and Denies paresthesias Psych Denies anxiety and Denies depression Endo Denies fatigue and Denies palpitations Ken/Lymph Denies easy bruising Aller/Immun Denies itchy eyes and Denies wheezing Physical exam (Primary Care) Vital Signs: Last Vital Signs Pulse 85 05/05/25 14:52 BP 120/70 05/05/25 14:52 Pulse Ox 98 05/05/25 14:52 Oxygen Delivery Method Room Air 05/05/25 14:52 BMI result Body Mass Index 21.0 Tobacco/Smoking Status: Tobacco use Status Tobacco use date assessed 05/05/25 05/05/25 14:55 Patient Tobacco Use Status Never used Tobacco 05/05/25 14:55 Tobacco use type Cigarette 05/05/25 14:55 e-Cigarette/Vaping Use Never Used 05/05/25 14:55 PHQ-9: PHQ-9 Score PHQ-9: Total score 0 05/05/25 15:35 Depression Screening Interpretation: Negative Thrive Assessment: Date of Thrive Assessment Date Thrive assessed 05/05/25 05/05/25 14:55 Currently or been in a relationship where the following occur: No concerns reported Const General: no acute distress, alert and awake Orientation/consciousness: patient oriented x3 HENMT Head: Yes normocephalic and Yes atraumatic Ears: external ears normal, TM's normal bilaterally and EAC's normal General nose exam: No nasal discharge present Face and sinus: Yes normal facial exam and Yes sinuses nontender Teeth and gingiva: dentition normal Throat: Yes posterior oropharynx normal and Yes tonsils normal (no TP congestion) Eyes Eyelids: Yes eyelids normal Conjunctivae: conjunctivae normal Pupils: Equal, round and reactive pupils present EOM: EOMs intact bilaterally Neck Neck: Yes no lymphadenopathy and Yes supple Thyroid: Thyroid normal Resp Auscultation: clear to auscultation bilaterally, no rales and no wheezes Cardio Rate: regular rate Rhythm: regular rhythm Heart sounds: no murmurs GI Palpation (GI): Soft to palpation, nontender and No hepatosplenomegaly present Auscultation: normal bowel sounds General: Yes no CVA tenderness Back/Spine/Pelvis Back: no CVA tenderness Thoracic/Lumbar Spine: thoracic and lumbar spine normal to inspection Skin Lesions: no lesions Rashes: no rashes Neuro General: patient oriented x3, moves all extremities, no focal motor deficits and CN's II-XI intact bilaterally Cranial nerves: Yes Equal, round and reactive pupils present Cognition (Neuro): normal cognition Gait exam (Neuro): Normal gait present Extrem General: Yes no clubbing, cyanosis or edema Coding Level of Care Code Est Pt Prev Care 40-64y(59848) Diagnoses Annual physical exam Z00.00 Allergic rhinitis, unspecified seasonality, unspecified trigger J30.9 Allergic rhinitis trigger: unspecified Allergic rhinitis seasonality: unspecified Additional Codes PHQ-9 - 50309 - PHQ-9 Billing: Yes ([id number]) Assessment & Plan Assessment & Plan (1) Annual physical exam: Code(s): Z00.00 - Encounter for general adult medical examination without abnormal findings Category: Medical Plan: Check labs TRACIE to complete her annual exam today Her last mammogram was done a year ago at [facility] and she has a history of dense breasts which required a biopsy that came out benign Adds that she is up-to-date with her yearly gynecology exam and pap smear - 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 (2) Allergic rhinitis: Code(s): J30.9 - Allergic rhinitis, unspecified Category: Medical Qualifiers: Allergic rhinitis trigger: unspecified Allergic rhinitis seasonality: unspecified Qualified Code(s): J30.9 - Allergic rhinitis, unspecified Plan: Continue Cetirizine 10 mg QD PRN Plan To return in 1 year for her next annual physical examination Orders: Orders Complete Blood Count Auto Diff 05/05/25 Z00.00 - Encounter for general adult medical examination without abnormal findings, Z13.0 - Encounter for screening for diseases of the blood and blood-forming organs and certain disorders involving the immune mechanism TSH reflex Free T4 05/05/25 Z00.00 - Encounter for general adult medical examination without abnormal findings, Z13.29 - Encounter for screening for other suspected endocrine disorder Vitamin D 25-OH Total 05/05/25 Z. - Encounter for general adult medical examination without abnormal findings, Z13.21 - Encounter for screening for nutritional disorder Comprehensive [place]. Panel Fast 05/05/25 Z. - Encounter for general adult medical examination without abnormal findings, Z13.1 - Encounter for screening for diabetes mellitus Lipid Panel 05/05/25 Z00.00 - Encounter for general adult medical examination without abnormal findings, Z13.220 - Encounter for screening for lipoid disorders UA CC w/rflx Micro + Cult 05/05/25 Z. - Encounter for general adult medical examination without abnormal findings, Z13.89 - Encounter for screening for other disorder
--- OUTSIDE RECORDS SUMMARY | 2025-05-05 23:04 | XMS_ITS ---
Care Plan Created on: May 05, 2025 Pam Sarabia : 1980 Sex: Female Author Organization [facility]ly [facility] Address [address] [place] [address] Care Team Providers Care Manifold Builder Name Role Phone Atiya Lopze RN Unavailable Unavailable Ant Tanner Primary Care Provider [phone] Additional Health Concerns Active Problems Noted Date Diagnosed Date Wellness Specific Goals 04/16/2025 Physical Activity 04/16/2025 Healthy Eating 04/16/2025 Behavioral Health 04/16/2025 Medications 04/16/2025 Weight 04/16/2025 Sleep 04/16/2025 Tobacco 04/16/2025 Goals Goal Patient Goal Type Associated Problems Recent Progress Patient-Stated? Author Provide and review Metabolic Syndrome specific workbook (delete if not applicable) Care Plan Wellness Specific Goals No Atiya Lopez RN Set initial healthcare provider visit Care Plan Wellness Specific Goals No Atiya Lopez RN Take actions to address health maintenance gaps Care Plan Wellness Specific Goals No Atiya Lopez RN Increase physical activity Care Plan Physical Activity No Atiya Lopez RN Exercise 30 minutes on 5 days per week Care Plan Physical Activity On track( 025 11:30 AM EST) Atiya Mcbride RN Note: Motivation (Select one of these): Motivation high Confidence high - Is planning to continue to walk 5 mornings a week through the holidays. Improve balance, strength or endurance Care Plan Physical Activity No Atiya Lopez RN Start of Coaching Healthy Eating Survey: Generate baseline customer score Care Plan Healthy Eating No Atiya Lopez RN End of Coaching Healthy Eating Survey: Generate customer endpoint score Care Plan Healthy Eating No Atiya Lopez RN Eat less salt Care Plan Healthy Eating Atiya Mcbride RN Eat less fast food Care Plan Healthy Eating No Atiya Lopez RN Cut out extra servings at meals Care Plan Healthy Eating No John Atiya, RN Drink less soda, juice, and other sugary beverages Care Plan Healthy Eating Atiya Mcbride RN Eat fewer sweets and sugary snacks Care Plan Healthy Eating Atiya Mcbride RN Decrease/monitor simple carbohydrate intake Care Plan Healthy Eating Atiya Mcbride RN Follow the DASH diet Care Plan Healthy Eating Atiya Mcbride RN Improve meal consistency Care Plan Healthy Eating Atiya Mcbride RN Plan meals in advance Care Plan Healthy Eating Atiya Mcbride RN Learn how to prepare healthy meals at home Care Plan Healthy Eating Atiya Mcbride RN Eat more fruits and vegetables Care Plan Healthy Eating Atiya Mcbride RN Start of Coaching HRQOL: Generate baseline customer score Care Plan Behavioral Health Atiya Mcbride RN End of Coaching HRQOL: Generate endpoint customer score Care Plan Behavioral Health Atiya Mcbride RN Start of Coaching Stress Assessment (Standard): Generate baseline customer score Care Plan Behavioral Health Atiya Mcbride RN End of Coaching Stress Assessment (Standard): Generate endpoint customer score Care Plan Behavioral Health Atiya Mcbride RN Improve knowledge/understa nding of condition(s) Care Plan Behavioral Health Atiya Mcbride RN Improve your coping skills Care Plan Behavioral Health Atiya Mcbride RN Improve problem solving skills Care Plan Behavioral Health Atiya Mcbride RN Improve organizational/lexie e management skills Care Plan Behavioral Health Atiya Mcbride RN Develop/expand support system Care Plan Behavioral Health Atiya Mcbride RN Maintain relationships Care Plan Behavioral Health Atiya Mcbride RN Decrease Alcohol Use Care Plan Behavioral Health Atiya Mcbride RN Decrease Drug Use Care Plan Behavioral Health Atiya Mcbride RN Investigate stress management techniques Care Plan Behavioral Health Atiya Mcbride RN Reduce job or personal stress through self management Care Plan Behavioral Health Atiya Mcbride RN Patient will identify 3 triggers of depression Care Plan Behavioral Health Atiya Mcbride RN Patient will better manage their depression Care Plan Behavioral Health Atiya Mcbride RN Decrease signs and symptoms of depression Care Plan Behavioral Health Atiya Mcbride RN Reduce overall tension and anxiety Care Plan Behavioral Health No John, Atiya, RN Client will be able to identify emotional and physiological signs of anxiety Care Plan Behavioral Health Atiya Mcbride RN Learn and implement coping skills to increase tolerance to anxiety Care Plan Behavioral Health Atiya Mcbride RN Consistently take Medications as Prescribed Care Plan Medications Atiya Mcbride RN Healthy Weight management Care Plan Weight Atiya Mcbride RN Improve Sleep Habits Care Plan Sleep Atiya Mcbride RN Quit using tobacco (cigarettes, smokeless, etc) Care Plan Tobacco Atiya Mcbride RN Reduce tobacco use (cigarettes, smokeless, etc) Care Plan Tobacco Atiya Mcbride RN Work with tobacco cessation program Care Plan Tobacco Atiya Mcbride RN Provide and Review condition specific workbook Care Plan Tobacco Atiya Mcbride RN Interventions Care Plan Interventions Intervention Entry Date Outcome (Patient) I will use reminder tools such as a pill box or medication log to help me keep track of what medications to take each day. 04/16/2025 (Patient) I will ensure that I have sufficient amounts of all of my medications. 04/16/2025 (Patient) I will be able to state that I understand how to I am supposed to take my medications. 04/16/2025 (Patient) I will be able to say what my medications are at the next review. 04/16/2025 Medication education 04/16/2025 Related Goals and Interventions Goal Associated Intervent ions Consistently take Medication s as Prescribed (Patient) I will use reminder tools such as a pill box or medication log to help me keep track of what medications to take each day.; (Patient) I will ensure that I have sufficient amounts of all of my medications.; (Patient) I will be able to state that I understand how to I am supposed to take my medications.; (Patient) I will be able to say what my medications are at the next review.; Medication education
--- OUTSIDE RECORDS SUMMARY | 2025-05-05 23:04 | XMS_ITS | Clinical Summary ---
Author Organization [facility] Address [address] [place] [address] Care Team Providers Care Sludge Filtration Attendant Name Role Phone Atiya Lopez RN Unavailable Unavailable Ant Tanenr Primary Care Provider [phone] Medications No known medications Encounters Date Type Department Care Team Description 04/16/2025 11:00 AM EST Health Coaching Visit [address] [id number] Atiya Lopez RN from Last 3 Months Social History Tobacco Use Types Packs/Day Years Used Date Smoking Tobacco: Never Assessed Comments Unknown Sex and Gender Information Value Date Recorded Sex Assigned at Female 04/16/2025 9:22 AM [facility] Legal Sex Female 1:01 PM [facility] Gender Identity Not on file Sexual Orientation Not on file Plan of Treatment Upcoming Encounters Date Type Department Care Team (Late st Contact Info) Description 06/07/2025 11:00 AM EST Health Coaching Visit [address] [phone] Atyia Lopez, RN Health Maintenance Due Date Last Done Comments Hepatitis C Screening 1981 MMR Vaccines (1 of 1 - Standard series) 1982 PHQ-9 Depression Screen 1993 Varicella Vaccines (1 of 2 - 13+ 2-dose series) 1994 Annual Preventive Exam 1999 YESENIA-7 Anxiety Screen 1999 DTaP,Tdap,and Td Vaccines (1 - Tdap) 2000 Hepatitis B Vaccines (1 of 3 - 19+ 3-dose series) 2000 Cervical Cancer Screening (Pap/HPV) 2002 Mammogram 2021 COVID-19 Vaccine ( season) 01/25/202504/2021, 10/11/2020 Influenza Vaccine (#1) 2025 RSV Vaccine (SCDM) (1 - 1-dose 75+ series) 2056 Goals Goal Patient Goal Type Associated Problems [...] Increase physical activity Care Plan Physical Activity Atiya Mcbride RN Exercise 30 minutes on 5 days [...] baseline customer score Care Plan Healthy Eating Atiya Mcbride RN End of Coaching Healthy Eating Survey: Generate customer endpoint score Care Plan Healthy Eating Atiya Mcbride RN Eat less salt Care Plan Healthy Eating Atiya Mcbride RN Eat less fast food Care Plan Healthy Eating Atiya Mcbride RN Cut out extra servings at meals Care Plan Healthy Eating Atiya Mcbride RN Drink less soda, juice, and other [...] tension and anxiety Care Plan Behavioral Health Atiya Mcbride RN Client will be able to identify [...] workbook Care Plan Tobacco Atiya Mcbride RN Additional Health Concerns Active Problems Noted Date Diagnosed Date Wellness Specific Goals 04/16/2025 Physical Activity 04/16/2025 Healthy Eating 04/16/2025 Behavioral Health 04/16/2025 Medications 04/16/2025 Weight 04/16/2025 Sleep 04/16/2025 Tobacco 04/16/2025 Insurance [employer] Care Teams Sludge Filtration Attendant Relationship Specialty Start Date End Date Ant Tanner [address] [place] [address] PCP - General 04/16/25 Atiya Lopez, [facility] Blancher Registered Nurse 02/18/25
== END 2025-05-05 15:38 | disposition home or self-care (01) ==
LOC: HO.HMCH 14:43
PROVIDERS: PCP Internal Medicine; Visit Provider Internal Medicine
DX: Z00.00 Encounter for general adult medical examination without abnormal findings (principal); J30.9 Allergic rhinitis, unspecified

== ENCOUNTER → 2025-05-05 14:42 | Outpatient (BNVA) | payer OTHER, SELFPAY | PROVIDERS: PCP Internal Medicine; Visit Provider Internal Medicine | DX: Z13.31 Encounter for screening for depression (principal); Z13.39 Encounter for screening examination for other mental health and behavioral disorders | CPT/HCPCS: 96127 ==

== ENCOUNTER 2025-05-13 14:28 | Outpatient (REF) | payer OTHER, SELFPAY ==
[2025-05-13 17:30] LABS: Resp Syncy Virus RNA Qual PCR NEGATIVE (Negative); SARS COV2 PCR INHOUSE NEGATIVE (Negative)
== END 2025-05-13 14:29 | disposition home or self-care (01) ==
LOC: HO.LNP 14:28
PROVIDERS: PCP Internal Medicine; Visit Provider Student in an Organized Health Care Education/Training Program
DX: J06.9 Acute upper respiratory infection, unspecified (principal); R05.9 Cough, unspecified
CPT/HCPCS: 87637

== ENCOUNTER 2025-05-13 14:28 | Outpatient (AMB) | payer OTHER, SELFPAY ==
--- NOTE | 2025-05-13 14:30 | A.OFFPC_ITS ---
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 Her children tested positive for the flu after becoming sick on Saturday. The patient's symptoms began yesterday with a general feeling of malaise. She developed a fever of 100 degrees last night, which was also present this morning. She reports the onset of a productive cough, exhaustion, myalgias, headaches, diarrhea, and mild congestion today. She also notes a loss of appetite today. She denies nausea or vomiting. For her symptoms, she took Mucinex with a decongestant and a fever cook ship last night. Her only regular medication is Zyrtec for allergies, which she takes as needed. FOR[facility]LY [facility], [facility] Medical History (Updated 05/07/25 @ 04:17 by Lele Meyer MD) Allergic rhinitis Surgical History History of section History of wisdom tooth extraction Family History Mother No problems noted. Father No problems noted. Social History Housing: House Alcohol intake: current Alcohol intake frequency: holidays/special occasions only Patient Tobacco Use Status: Never used Tobacco Tobacco use type: Cigarette e-Cigarette/Vaping Use: Never Used Second Hand Smoke Exposure: No service: No Current occupational status: employed Current occupation: [employer] Cognitive needs: No Hearing needs: No Vision needs: No Questionnaire Thrive Questionnaire Date Thrive assessed: 03/25/25 I am a: Patient What is your living situation today?: I have a steady place to live Within the past 12 months, did the food you bought not last and you didn't have the money to get more?: Never true Within the past 12 months, did you worry whether your food would run out before you got money to buy more?: Never true Do you have trouble paying for medicines?: No Do you have trouble getting transportation to medical appointments?: No Do you have trouble paying your heating and electricity bill?: No Do you have trouble taking care of your child, family member or friend?: No Do you have trouble with day-to-day activities such as bathing, preparing meals, shopping, managing finances, etc.?: No Are you currently unemployed and looking for a job?: No Are you interested in more education?: No Please select the resources that you would like help with: None Currently or been in a relationship where the following occur: No concerns reported THRIVE Score: 0 YESENIA-7 AMB Questionnaire YESENIA-7 Date YESENIA - 7 assessed: 05/05/25 Source: Developed by Drs. Sloan Lemus, Kailyn Allen, Cesar Hicks and colleagues, with an educational bebeto from [employer] Physical exam (Primary Care) Vital Signs: Last Vital Signs Temp 97.9 F 05/13/25 14:33 Pulse 81 05/13/25 14:33 Resp 16 05/13/25 14:33 BP 100/56 L 05/13/25 14:33 Pulse Ox 98 05/13/25 14:33 Oxygen Delivery Method Room Air 05/13/25 14:33 General: Well-appearing, alert, oriented ?3, in no acute distress. HEENT: Normocephalic, atraumatic, PERRLA, EOMI, no scleral icterus. External ears normal, tympanic membranes intact bilaterally, no erythema or effusion. Erythematous nasal mucosa. Posterior oropharyngeal erythema. Neck Supple. No carotid bruits. Cardiovascular: RRR, S1-S2 appreciated, no murmurs, rubs or gallops. Respiratory: Lungs clear to auscultation bilaterally, no wheezes, rales or rhonchi. BMI result Body Mass Index 20.9 Tobacco/Smoking Status: Tobacco use Status Tobacco use date assessed 05/05/25 05/13/25 14:36 Patient Tobacco Use Status Never used Tobacco 05/13/25 14:36 Tobacco use type Cigarette 05/13/25 14:36 e-Cigarette/Vaping Use Never Used 05/13/25 14:36 Thrive Assessment: Date of Thrive Assessment Date Thrive assessed 03/25/25 05/13/25 14:36 Currently or been in a relationship where the following occur: No concerns reported Coding Level of Care Code Est Pt Level 3 (42710) Diagnoses Upper respiratory tract infection, unspecified type J06.9 URI type: unspecified URI Assessment & Plan Assessment & Plan (1) URI (upper respiratory infection): Code(s): J06.9 - Acute upper respiratory infection, unspecified Qualifiers: URI type: unspecified URI Qualified Code(s): J06.9 - Acute upper respiratory infection, unspecified Plan: Patient presenting with symptoms of upper respiratory infection, with reports of contacts with her children who recently tested positive for influenza. No shortness of breath or wheezing. Test for influenza/COVID/RSV. Robitussin p.r.n. cough May use Tylenol or ibuprofen (may take 1 or 2 tablets every 6 hours) [id number] as needed for aches, pains, headaches and fever. Take ibuprofen with food and water. Avoid decongestants more than 3 days to prevent rebound congestion Orders: Orders SARS-CoV2/FLU/RSV Today R05.9 - Cough, unspecified Medications: New dextromethorphan-guaifenesin 5-100 mg/5 mL (Robitussin Cough-Chest Congestion DM) 10 mL PO Q4-8H PRN 500 mL 0RF cough
[2025-05-13 14:33] VITALS: BP 100/56; PULSE 81; RESP 16; TEMP 36.6; O2SAT 98; BMI 20.9
--- OUTSIDE RECORDS SUMMARY | 2025-05-13 18:36 | XMS_ITS ---
Care Plan Created on: May 13, 2025 Pam Sarabia : 1980 Sex: Female Author Organization [facility] Address [address] [place] [address] Care Team Providers Care Political Science Chair Name Role Phone Atiya Lopez RN Unavailable Unavailable Ant Tanner Primary Care Provider [phone] Additional Health Concerns Active Problems Noted Date [...]
--- OUTSIDE RECORDS SUMMARY | 2025-05-13 18:36 | XMS_ITS | Clinical Summary ---
Author Organization [facility] Address [address] [place] [address] Care Team Providers Care Weigher And Crusher Name Role Phone Atiya Lopez RN Unavailable Unavailable Ant Tanner Primary Care Provider Medications No known medications Encounters Date Type Department Care Team Description 04/16/2025 11:00 AM EST Health Coaching Visit [address] [phone] Atiya Lopez RN from Last 3 Months Social History Tobacco Use Types Packs/Day Years Used Date Smoking Tobacco: Never Assessed Comments Unknown Sex and Gender Information Value Date Recorded Sex Assigned at Female 04/16/2025 9:22 AM [facility] Legal Sex Female 1:01 PM [facility] Gender Identity Not on file Sexual Orientation Not on file Plan of Treatment Upcoming Encounters Date Type Department Care Team (Late st Contact Info) Description 06/07/2025 11:00 AM EST Health Coaching Visit [address] [phone] Atiya Lopez, RN Health Maintenance Due Date Last [...] 04/16/2025 Tobacco 04/16/2025 Insurance [employer] Care Teams Weigher And Crusher Relationship Specialty Start Date End Date Ant Tanner [address] [place] [address] PCP - General 04/16/25 Atiya Lopez, [facility] Pharmacist Hospital Registered Nurse 02/18/25
== END 2025-05-13 14:56 | disposition home or self-care (01) ==
LOC: HO.HMCH 14:29
PROVIDERS: PCP Internal Medicine; Visit Provider Student in an Organized Health Care Education/Training Program
DX: J06.9 Acute upper respiratory infection, unspecified (principal)